=== PATIENT | female | born 2000 | race American Indian/Alaskan Native ===

== ENCOUNTER 2021-01-16 20:25 | Inpatient (IN) | payer MEDICAID ==
[2021-01-16] MEDS ORDERED: LIDOCAINE (2%) 20 MG/1 ML VIAL 20 ML MDV INFILTRATI ONE (22:02)
[2021-01-16] MEDS ORDERED: fentaNYL 100 MCG/2 ML INJ IV PRN (22:02)
[2021-01-16] MEDS ORDERED: MINERAL OIL 30 ML ORAL LIQD PO PRN (22:02)
[2021-01-16] MEDS ORDERED: LOPERAMIDE 2 MG CAP PO PRN (22:02)
[2021-01-16] MEDS ORDERED: DINOPROSTONE 10 MG VAG SUPP VG ONE (22:02)
[2021-01-16] MEDS ORDERED: CARBOPROST TROMETHAMINE 250 MCG/1 ML INJ IM PRN (22:02)
[2021-01-16] MEDS ORDERED: ePHEDrine SULFATE 50 MG/1 ML INJ IV PRN (22:02)
[2021-01-16] MEDS ORDERED: NalbUPHINE 10 MG/1 ML INJ IV PRN (22:02)
[2021-01-16] MEDS ORDERED: miSOPROStol 200 MCG TAB PR PRN (22:02)
[2021-01-16] MEDS ORDERED: OXYTOCIN 10 UNIT/1 ML INJ IM PRN (22:02)
[2021-01-16] MEDS ORDERED: ACETAMINOPHEN 325 MG TAB PO PRN (22:02)
[2021-01-16] MEDS ORDERED: ONDANSETRON 4 MG/2 ML INJ IV PRN (22:02)
[2021-01-16] MEDS ORDERED: METHYLERGONOVINE MALEATE 0.2 MG/ML VIAL IM PRN (22:02)
[2021-01-16] MEDS ORDERED: TERBUTALINE 1 MG/1 ML INJ SUB-Q PRN (22:02)
[2021-01-16] MEDS ORDERED: AMPICILLIN/NS 2 GM/100 ML 2 GM/100 ML BAG IV ONE (22:02)
--- NOTE | 2021-01-16 22:02 | History and Physical Report ---
History of Present Illness Date of examination: 01/16/21 Date of admission: 01/16/21 20:25 Chief complaint: Here for scheduled induction of labor. History of present illness: 20 year old presents for scheduled induction of labor due to post-term . Patient received care at [facility] office and records are available. LMP 03/27/2020. EDC 01/09/2021. significant for the following: obesity, chlamydia (treated and cured), GBS positive (GBS bacteriuria), varicella nonimmune, UTI (treated). labs are as follows: O+, antibody screen negative, rubella immune, hepatitis B surface antigen negative, HIV negative, RPR nonreactive, varicella nonimmune, hemoglobin electrophoresis negative, gonorrhea negative, chlamydia positive/negative, trichomonas negative, NIPS negative, 1 hour sugar test 79, GBS positive. Past History Past Medical History: other (obesity, vitamin D deficiency) Past Surgical History: no surgical history [employer] History: chlamydia (treated and cured during ). denies: gonorrhea, hepatitis B, hepatitis C, herpes, HIV, syphilis, trichomonas Family/Genetic History: other (anemia) Social history: single, full code. denies: smoking, alcohol abuse, prescription drug abuse, IV drug use - Obstetrical History Expected Date of Delivery: 01/09/21 Actual Gestation: 41 Week(s) 0 Day(s) : 1 Para: 0 Hx # Term Pregnancies: 0 Number of Pregnancies: 0 Spontaneous Abortions: 0 Induced : 0 Number of Living Children: 0 Medications and Allergies Allergies Allergy/AdvReac Type Severity Reaction Status Date / Time No Known Allergies Allergy Verified 01/16/21 22:31 Review of Systems All systems: negative (rare contraction) - Vital Signs Vital signs: Vital Signs Pulse Pulse Ox 62 48 L 01/16/21 20:54 01/16/21 20:54 Temp Pulse Resp BP Pulse Ox 77 110/69 99 01/16/21 22:00 01/16/21 20:56 01/16/21 22:00 - Physical Exam Abdomen: Positive: normal appearance, soft. Negative: distention, tenderness, guarding, rigidity Genitourinary (Female): Positive: normal external genitalia, normal perenium. Negative: perineal/vulvar lesions Vagina: Positive: normal moisture Uterus: Positive: enlarged. Negative: tender Anus/Rectum: Positive: normal perianal skin Extremities: Negative: tenderness - Obstetrical FHR: category 2 Uterine Contraction Monitor Mode: External Cervical Dilatation: 1.5 Cervical Effacement Percentage: 50 station: -3 Uterine Contraction Pattern: Absent Results All other labs normal. Assessment and Plan A: at 41 weeks gestation. GBS positive. P: Admit. EFM. GBS prophylaxis. Cervidil for cervical ripening.
[2021-01-16] MEDS: LACTATED RINGERS 1,000 ML IV SCH (22:49)
[2021-01-16] MEDS ORDERED: OXYTOCIN DRIP 30 UNITS/500 ML BAG IV SCH ×2 (23:00)
[2021-01-16 23:02] LABS: Hemoglobin 12.3 gm/dl (10.1-14.3); Mean Corpuscular HGB Conc 33 % (30-34); Mean Corpuscular Volume 89 fl (79-97); Red Blood Count 4.17 M/mm3 (3.65-5.03); Red Cell Distribution Width 14.4 % (13.2-15.2)
[2021-01-16 23:14] LABS: Platelet Count 266 K/mm3 (140-440)
[2021-01-17] MEDS: AMPICILLIN/NS 1 GM/50 ML 1 GM/50 ML BAG IV SCH ×3 (03:15→13:58)
[2021-01-17] MEDS: LACTATED RINGERS 1,000 ML IV SCH (09:02)
--- NOTE | 2021-01-17 10:26 | Progress Note ---
Assessment and Plan A: IUP @ 41 1/7 Weeks Category I Tracing GBS Positive P: AROM Internals x 2 Restart Low Dose Pitocin Induction Subjective - Subjective Date of service: 01/17/21 Patient reports: movement normal Objective - Vital Signs Vital Signs: Vital Signs - 12hr 01/16/21 01/16/21 01/16/21 22:27 22:32 22:37 Temperature Pulse Rate 69 64 66 Blood Pressure O2 Sat by Pulse 100 100 100 Oximetry O2 Sat by Pulse Oximetry [ Bilateral Throughout] 01/16/21 01/16/21 01/16/21 22:42 22:47 22:52 Temperature Pulse Rate 68 70 68 Blood Pressure O2 Sat by Pulse 100 100 100 Oximetry O2 Sat by Pulse Oximetry [ Bilateral Throughout] 01/16/21 01/16/21 01/16/21 22:57 23:02 23:07 Temperature Pulse Rate 67 62 70 Blood Pressure O2 Sat by Pulse 100 100 100 Oximetry O2 Sat by Pulse Oximetry [ Bilateral Throughout] 01/16/21 01/16/21 01/16/21 23:12 23:17 23:22 Temperature Pulse Rate 65 67 71 Blood Pressure O2 Sat by Pulse 99 100 100 Oximetry O2 Sat by Pulse Oximetry [ Bilateral Throughout] 01/16/21 01/16/21 01/16/21 23:27 23:32 23:37 Temperature Pulse Rate 63 64 79 Blood Pressure O2 Sat by Pulse 100 99 100 Oximetry O2 Sat by Pulse Oximetry [ Bilateral Throughout] 01/16/21 01/16/21 01/16/21 23:42 23:47 23:52 Temperature Pulse Rate 68 63 64 Blood Pressure O2 Sat by Pulse 100 100 100 Oximetry O2 Sat by Pulse Oximetry [ Bilateral Throughout] 01/16/21 01/17/21 01/17/21 23:57 00:02 00:07 Temperature Pulse Rate 59 L 65 74 Blood Pressure O2 Sat by Pulse 100 100 100 Oximetry O2 Sat by Pulse Oximetry [ Bilateral Throughout] 01/17/21 01/17/21 01/17/21 00:12 00:17 00:22 Temperature Pulse Rate 71 72 77 Blood Pressure O2 Sat by Pulse 100 100 100 Oximetry O2 Sat by Pulse Oximetry [ Bilateral Throughout] 01/17/21 01/17/21 01/17/21 00:27 00:32 00:37 Temperature Pulse Rate 76 85 69 Blood Pressure O2 Sat by Pulse 99 99 100 Oximetry O2 Sat by Pulse Oximetry [ Bilateral Throughout] 01/17/21 01/17/21 01/17/21 00:42 00:47 00:52 Temperature Pulse Rate 81 77 76 Blood Pressure O2 Sat by Pulse 98 99 100 Oximetry O2 Sat by Pulse Oximetry [ Bilateral Throughout] 01/17/21 01/17/21 01/17/21 00:57 01:02 01:07 Temperature 98.3 F Pulse Rate 72 86 87 Blood Pressure 129/69 O2 Sat by Pulse 100 99 100 Oximetry O2 Sat by Pulse Oximetry [ Bilateral Throughout] 01/17/21 01/17/21 01/17/21 01:12 01:17 01:22 Temperature Pulse Rate 86 89 92 H Blood Pressure O2 Sat by Pulse 100 99 99 Oximetry O2 Sat by Pulse Oximetry [ Bilateral Throughout] 01/17/21 01/17/21 01/17/21 01:27 01:32 01:37 Temperature Pulse Rate 81 73 89 Blood Pressure O2 Sat by Pulse 98 98 99 Oximetry O2 Sat by Pulse Oximetry [ Bilateral Throughout] 01/17/21 01/17/21 01/17/21 01:42 01:47 01:52 Temperature Pulse Rate 91 H 72 70 Blood Pressure O2 Sat by Pulse 99 99 99 Oximetry O2 Sat by Pulse Oximetry [ Bilateral Throughout] 01/17/21 01/17/21 01/17/21 01:57 02:02 02:07 Temperature Pulse Rate 84 83 85 Blood Pressure 111/59 O2 Sat by Pulse 99 98 99 Oximetry O2 Sat by Pulse Oximetry [ Bilateral Throughout] 01/17/21 01/17/21 01/17/21 02:12 02:17 02:22 Temperature Pulse Rate 83 90 68 Blood Pressure O2 Sat by Pulse 99 99 99 Oximetry O2 Sat by Pulse Oximetry [ Bilateral Throughout] 01/17/21 01/17/21 01/17/21 02:27 02:32 02:37 Temperature Pulse Rate 75 85 68 Blood Pressure O2 Sat by Pulse 99 99 99 Oximetry O2 Sat by Pulse Oximetry [ Bilateral Throughout] 01/17/21 01/17/21 01/17/21 02:42 02:47 02:52 Temperature Pulse Rate 73 67 68 Blood Pressure O2 Sat by Pulse 99 99 98 Oximetry O2 Sat by Pulse Oximetry [ Bilateral Throughout] 01/17/21 01/17/21 01/17/21 02:57 03:02 03:07 Temperature Pulse Rate 64 78 77 Blood Pressure O2 Sat by Pulse 98 99 96 Oximetry O2 Sat by Pulse Oximetry [ Bilateral Throughout] 01/17/21 01/17/21 01/17/21 03:08 03:12 03:17 Temperature Pulse Rate 76 69 62 Blood Pressure 140/66 O2 Sat by Pulse 98 100 Oximetry O2 Sat by Pulse Oximetry [ Bilateral Throughout] 01/17/21 01/17/21 01/17/21 03:22 03:27 03:32 Temperature Pulse Rate 68 73 66 Blood Pressure O2 Sat by Pulse 98 100 99 Oximetry O2 Sat by Pulse Oximetry [ Bilateral Throughout] 01/17/21 01/17/21 01/17/21 04:09 05:08 06:18 Temperature Pulse Rate 68 60 72 Blood Pressure 104/52 120/65 105/58 O2 Sat by Pulse Oximetry O2 Sat by Pulse Oximetry [ Bilateral Throughout] 01/17/21 01/17/21 01/17/21 07:08 07:30 08:06 Temperature Pulse Rate 58 L 70 Blood Pressure 90/53 111/61 O2 Sat by Pulse Oximetry O2 Sat by Pulse 99 Oximetry [ Bilateral Throughout] 01/17/21 01/17/21 09:08 10:07 Temperature Pulse Rate 62 68 Blood Pressure 107/62 127/68 O2 Sat by Pulse Oximetry O2 Sat by Pulse Oximetry [ Bilateral Throughout] - Exam Breasts: normal Cardiovascular: Regular rate Lungs: Clear to auscultation, Normal air movement Abdomen: Present: normal appearance, soft Uterus: Present: normal, firm, fundal height above umbilicus FHR: category 1 Uterine Contraction Monitor Mode: Internal Cervical Dilatation: 3 (Moderate amount of clear fluid upon AROM at 1000) Cervical Effacement Percentage: 60 station: -2 Uterine Contraction Frequency (min): 5 Uterine Contraction Pattern: Irregular Uterine Tone Measurement Phase: Resting Uterine Contraction Intensity: Mild Extremities: normal - Labs Labs: Laboratory Results - last 24 hr 01/16/21 01/16/21 01/16/21 21:17 21:17 23:45 WBC 8.6 RBC 4.17 Hgb 12.3 Hct 37.0 MCV 89 MCH 30 MCHC 33 RDW 14.4 Plt Count 266 Syphilis IgG Antibody Nonreactive Blood Type O POSITIVE Antibody Screen Negative
[2021-01-17] MEDS ORDERED: METOCLOPRAMIDE 10 MG/2 ML INJ IV ONE (13:28)
[2021-01-17] MEDS ORDERED: FAMOTIDINE 20 MG/2 ML INJ IV ONE (13:28)
[2021-01-17] MEDS ORDERED: BICITRA ORAL LIQD 30ML PO ONE (13:28)
[2021-01-17] MEDS ORDERED: LACTATED RINGERS 1,000 ML IV SCH (13:30)
[2021-01-17] MEDS ORDERED: OXYTOCIN DRIP 30 UNITS/500 ML BAG IV SCH ×2 (14:00→20:00)
[2021-01-17] MEDS ORDERED: ceFAZolin/Water 2 GM/20 ML 2 GM/20 ML SYRINGE IV NR (14:00)
[2021-01-17] MEDS ORDERED: BUPIVACAINE/PF (0.5%) 5 MG/1 ML 30 ML VIAL INFILTRATI ONE (16:23)
[2021-01-17] MEDS ORDERED: KETOROLAC 30 MG/1 ML INJ ONE (16:23)
[2021-01-17] MEDS ORDERED: dexAMETHasone 20 MG/5 ML VIAL ONE (16:23)
[2021-01-17] MEDS ORDERED: ONDANSETRON 4 MG/2 ML INJ ONE (16:23)
--- NOTE | 2021-01-17 16:40 | Anesthesia Day of Surgery ---
Anesthesia Day of Surgery - Day of Surgery Patient Examined: Yes Patient H&P Reviewed: Yes Patient is NPO: Yes Beta Blockers: No Cardiac Clearance: No Pulmonary Clearance: No Sven's Test: N/A
[2021-01-17] MEDS ORDERED: HYDROmorphone 1 MG/1 ML INJ IV PRN (16:41)
[2021-01-17] MEDS ORDERED: diphenhydrAMINE 50 MG/ML VIAL IV PRN (16:41)
[2021-01-17] MEDS ORDERED: NALOXONE 0.4 MG/1 ML INJ IV PRN ×2 (16:41→19:27)
[2021-01-17] MEDS ORDERED: PROMETHAZINE 25 MG RECT SUPP PR PRN ×2 (16:41→19:27)
[2021-01-17] MEDS ORDERED: NalbUPHINE 10 MG/1 ML INJ IV PRN (16:41)
[2021-01-17] MEDS ORDERED: ONDANSETRON 4 MG/2 ML INJ IV PRN ×2 (16:41→19:27)
[2021-01-17] MEDS ORDERED: PROMETHAZINE 25 MG TAB PO PRN (16:41)
--- NOTE | 2021-01-17 16:41 | Anesthesia Consultation ---
Anesthesia Consult and Med Hx Date of service: 01/17/21 - Airway Anesthetic Teeth Evaluation: Good ROM Head & Neck: Adequate Mental/Hyoid Distance: Adequate Mallampati Class: Class II Intubation Access Assessment: Probably Good - Pulmonary Exam CTA: Yes - Cardiac Exam Cardiac Exam: RRR - Pre-Operative Health Status ASA Pre-Surgery Classification: ASA2 Proposed Anesthetic Plan: Spinal Nerve Block: TAP - Pulmonary Hx Smoking: No Hx Asthma: No Hx Sleep Apnea: No - Cardiovascular System Hx Hypertension: No Hx Heart Attack/AMI: No Hx Angina: No - Central Nervous System Hx Seizures: No Hx Psychiatric Problems: No - Gastrointestinal Hx Gastroesophageal Reflux Disease: No - Endocrine Hx Renal Disease: No Hx Liver Disease: No Hx Insulin Dependent Diabetes: No Hx Non-Insulin Dependent Diabetes: No Hx Hypothyroidism: No Hx Hyperthyroidism: No - Hematic Hx Anemia: No Hx Sickle Cell Disease: No - Other Systems Hx Obesity: Yes
[2021-01-17] MEDS ORDERED: ceFAZolin/STERILE WATER 2 GM/20 ML SYRINGE IV ONE (17:35)
[2021-01-17] MEDS ORDERED: WATER FOR IRRIG STERILE 1,500 ML BOTTLE IR ONE (17:43)
[2021-01-17] MEDS ORDERED: SODIUM CHLORIDE 0.9% IRR 1,500 ML BOTTLE IR ONE (17:43)
[2021-01-17] MEDS ORDERED: PHENYLEPHRINE/NS 1,000 MCG/10 ML SYRINGE (OR USE) IV ONE (17:52)
[2021-01-17] MEDS ORDERED: ePHEDrine SULFATE 50 MG/1 ML INJ ONE (17:52)
[2021-01-17] MEDS ORDERED: fentaNYL 100 MCG/2 ML INJ ONE (18:37)
[2021-01-17] MEDS ORDERED: KETAMINE/STERILE WATER 50 MG/ML SYRINGE ONE (18:53)
[2021-01-17] MEDS ORDERED: SENNOSIDES 8.6 MG TAB PO PRN (19:27)
[2021-01-17] MEDS ORDERED: SIMETHICONE 80 MG CHEW TAB PO PRN (19:27)
[2021-01-17] MEDS ORDERED: MORPHINE 4 MG/1 ML INJ IV PRN (19:27)
[2021-01-17] MEDS ORDERED: LANOLIN/ZINC/DIMETHICONE (LANSINOH) 7 GM TP PRN (19:27)
[2021-01-17] MEDS ORDERED: ACETAMINOPHEN 325 MG TAB PO PRN (19:27)
[2021-01-17] MEDS ORDERED: IBUPROFEN 800 MG TAB PO PRN (19:27)
[2021-01-17] MEDS ORDERED: WITCH HAZEL/ GLYCERIN PAD TP PRN (19:27)
[2021-01-17] MEDS ORDERED: HYDROCORTISONE 25 MG RECTAL SUPP PR PRN (19:27)
[2021-01-17] MEDS ORDERED: MAGNESIUM HYDROXIDE (MOM) ORAL LIQD UDC PO PRN (19:27)
--- NOTE | 2021-01-17 19:44 | Procedure Note ---
OB Delivery Note - Delivery Date of Delivery: 01/17/21 Surgeon: YURI SOLORIO JR Estimated blood loss: other (QBL 590cc) - Section Preop diagnosis: arrest of dilation, nonreassuring FHR tracing Postop diagnosis: same section procedure: section, primary low transverse Disposition: PACU Complications: hematoma (non-expanding 3 cm right sided hematoma) Narrative: Indication: 20-year-old G1 at 41 weeks 1 day complicated by obesity presenting for induction of labor now failed secondary to inability to induce and nonreassuring heart tones for primary . Findings: Normal uterus, tubes and ovaries. Clear fluid, terminal meconium. No nuchal cord. Delivery of male infant at 1834 Weight 2975g APGARS 9/9 EBL 590cc QBL [id number] cc UOP 150 cc Procedure: Patient was taken to the operating room prepped and draped in the usual sterile fashion. Pfannenstiel skin incision was made and carried down to the underlying fascia. Fascia was incised and the incision was distended bilaterally. Rectus fascia was dissected off the rectus muscle superiorly and inferiorly. Peritoneum was identified and entered. Peritoneal incision extended superiorly and inferiorly. The bladder was visualized. The bladder blade was placed. Uterine hysterotomy incision was made and extended bilaterally. The baby was delivered in the typical vertex fashion. Baby was bulb suction at delivery. The cord was cut and clamped and handed off to the team. The placenta was delivered spontaneously. The uterus was exteriorized and cleared of all clots and debris. Uterine incision was closed with a 0 Vicryl in a running locked fashion. Good hemostasis was noted at the second and second [id number] suture applied to a right sided incisional hematoma. Surgicel powder was applied to the uterine incisional base to provide hemostasis. The urine was noted to be clear. Uterus, tubes, and ovaries were returned to the abdominal cavity. Bilateral gutters were cleared and the abdomen and pelvis were irrigated. Good hemostasis noted. The rectus muscle was reapproximated with 2-0 Vicryl. Attention was directed towards the rectus fascia which was reapproximated with 0 PDS in a running fashion. The subcutaneous tissue was irrigated and reapproximated with 2-0 Vicryl in a running fashion. Skin was closed with a 3-0 monocryl in a subcuticular fashion. The procedure was completed and the patient tolerated the procedure well. All instruments and lap counts were correct x2. - Infant A at 1 minute: 9 at 5 minutes: 9 Gender: Male
[2021-01-17] MEDS: KETOROLAC 30 MG/1 ML INJ IV SCH (22:31)
[2021-01-17] MEDS: D5W/LACTATED RINGERS 1,000 ML IV SCH (22:33)
[2021-01-18] MEDS: KETOROLAC 30 MG/1 ML INJ IV SCH ×3 (03:38→14:43)
[2021-01-18] MEDS: D5W/LACTATED RINGERS 1,000 ML IV SCH (03:40)
[2021-01-18] MEDS: oxyCODONE /ACETAMINOPHEN 5-325MG TAB PO PRN ×2 (05:55→22:01)
[2021-01-18 11:07] LABS: Hematocrit 26.3 % (30.3-42.9); Hemoglobin 8.8 gm/dl (10.1-14.3)
--- NOTE | 2021-01-18 12:26 | Post Anesthesia Evaluation ---
- Post Anesthesia Evaluation Patient Participated: Yes Airway Patent: Yes Stable Respiratory Function: Yes Nausea/Vomiting: No Temp > 96.8F: Yes Pain Manageable: Yes Adequeate Hydration: Yes Anesthesia Complications: No Block Receding Appropriately: Yes Patient on Ventilator: No
--- NOTE | 2021-01-18 16:15 | Progress Note ---
Assessment and Plan POD#1, C/Section doing fair 1. Routine post op care and dressing removal tomorrow 2. Iron supplement for asymptomatic anemia, hgb 8.8 seen plan of care discussed with pt Subjective Date of service: 01/18/21 Principal diagnosis: POD#1 C/S Interval history: pt has no complaints. pain controlled with meds. pt is breast feedling. vag bleed less than a period. pt has passed flatus. Tolerates clears diet and voiding without difficulty Objective - Constitutional Vitals: Vital Signs - 12hr 01/18/21 01/18/21 01/18/21 05:00 05:55 08:30 Temperature 98.6 F Pulse Rate 66 Respiratory 18 20 Rate Blood Pressure Blood Pressure 118/63 [Left] O2 Sat by Pulse 100 Oximetry O2 Sat by Pulse 98 Oximetry [ Bilateral Throughout] 01/18/21 01/18/21 08:52 12:51 Temperature 97.9 F 98.0 F Pulse Rate 69 61 Respiratory 18 19 Rate Blood Pressure 124/62 118/57 Blood Pressure [Left] O2 Sat by Pulse 97 100 Oximetry O2 Sat by Pulse Oximetry [ Bilateral Throughout] General appearance: Present: no acute distress - Respiratory Respiratory effort: normal Extremities: No edema - Genitourinary Female genitourinary: other (fundus, firm below umbilicus) - Labs CBC & Chem 7: 01/18/21 10:47 Labs: Abnormal lab results 01/18/21 Range/Units 10:47 Hgb 8.8 L D (10.1-14.3) gm/dl Hct 26.3 L D (30.3-42.9) % Medications & Allergies - Medications Allergies/Adverse Reactions: Allergies No Known Allergies Allergy (Verified 01/16/21 22:31) Home Medications: Home Medications Medication Instructions Recorded Confirmed Last Taken Type Ibuprofen [Motrin 800 MG tab] 800 mg PO Q6H PRN #30 tablet 01/17/21 Unknown Rx oxyCODONE /ACETAMINOPHEN [Percocet 1 tab PO Q6H PRN #30 tablet 01/17/21 Unknown Rx 5/325 mg] Active Medications: Generic Name Dose Route Start Last Admin Trade Name Freq PRN Reason Stop Dose Admin Acetaminophen 650 mg 01/17/21 19:27 Acetaminophen 325 Mg Tab PO Q4H PRN Fever >100.5/SMITH Carboprost Tromethamine 250 mcg 01/16/21 22:02 Carboprost Tromethamine 250 Mcg/1 Ml Inj IM ONCE PRN Uterine Bleeding Diphenhydramine HCl 12.5 mg 01/17/21 16:41 Diphenhydramine 50 Mg/Ml Vial IV Q2H PRN Itching Ephedrine Sulfate 10 mg 01/16/21 22:02 Ephedrine Sulfate 50 Mg/1 Ml Inj IV Q2M PRN Hypotension Fentanyl 100 mcg 01/16/21 22:02 Fentanyl 100 Mcg/2 Ml Inj IV Q2H PRN Pain,Severe (7-10) LABOR PAIN Hydrocortisone Acetate 25 mg 01/17/21 19:27 Hydrocortisone 25 Mg Rectal Supp RI BID PRN Hemorrhoids Hydromorphone HCl 0.5 mg 01/17/21 16:41 01/18/21 09:52 Hydromorphone 1 Mg/1 Ml Inj IV 0.5 mg Q4H PRN Administration breakthrough pain > 7/10 Oxytocin/Sodium Chloride 30 units in 500 mls @ 40 mls/hr 01/17/21 20:00 Pitocin/Ns 30 Unit/500ml IV TITR BROOKE Protocol Dextrose/Lactated Ringer's 1,000 mls @ 125 mls/hr 01/17/21 23:00 01/18/21 03:40 D5lr IV 125 mls/hr DIRECT BROOKE Administration Ibuprofen 800 mg 01/17/21 19:27 Ibuprofen 800 Mg Tab PO Q6H PRN Pain, Mild (1-3) Loperamide HCl 2 mg 01/16/21 22:02 Loperamide 2 Mg Cap PO ONCE PRN give with Hemabate Magnesium Hydroxide 30 ml 01/17/21 19:27 Magnesium Hydroxide (Mom) Oral Liqd Udc PO QHS PRN Constip Unrelieved By Senna Methylergonovine Maleate 0.2 mg 01/16/21 22:02 Methylergonovine Maleate 0.2 Mg/Ml Vial IM ONCE PRN Uterine Bleeding Mineral Oil 30 ml 01/16/21 22:02 Mineral Oil 30 Ml Oral Liqd PO QHS PRN Constipation Misoprostol 800 mcg 01/16/21 22:02 Misoprostol 200 Mcg Tab RI ONCE PRN Uterine Bleeding Morphine Sulfate 4 mg 01/17/21 19:27 Morphine 4 Mg/1 Ml Inj IV Q4H PRN Pain , Severe (7-10) Multi-Ingredient Ointment 1 applic 01/17/21 19:27 Lanolin/Zinc/Dimethicone (Lansinoh) 7 Gm TP PRN PRN dryness/cracking Nalbuphine HCl 10 mg 01/16/21 22:02 Nalbuphine 10 Mg/1 Ml Inj IV Q2H PRN Pain, Moderate (4-6) Nalbuphine HCl 2.5 mg 01/17/21 16:41 Nalbuphine 10 Mg/1 Ml Inj IV Q2H PRN Itching Naloxone HCl 0.1 mg 01/17/21 19:27 Naloxone 0.4 Mg/1 Ml Inj IV Q2MIN PRN Res Rate </= 8 or 02 SAT < 92% Ondansetron HCl 4 mg 01/17/21 19:27 Ondansetron 4 Mg/2 Ml Inj IV Q8H PRN Nausea And Vomiting Oxycodone/Acetaminophen 1 tab 01/17/21 19:27 01/18/21 05:55 Oxycodone /Acetaminophen 5-325mg Tab PO 1 tab Q6H PRN Administration Pain, Moderate (4-6) Oxytocin 10 unit 01/16/21 22:02 Oxytocin 10 Unit/1 Ml Inj IM ONCE PRN Uterine Bleeding Promethazine HCl 25 mg 01/17/21 16:41 Promethazine 25 Mg Tab PO Q6H PRN Nausea And Vomiting Promethazine HCl 25 mg 01/17/21 19:27 Promethazine 25 Mg Rect Supp RI Q6H PRN N/V IF NPO AND NO IV ACCESS Senna 17.2 mg 01/17/21 19:27 Sennosides 8.6 Mg Tab PO QHS PRN Constipation Simethicone 80 mg 01/17/21 19:27 Simethicone 80 Mg Chew Tab PO Q6H PRN Gas pain Sodium Chloride 10 ml 01/17/21 20:00 Sodium Chloride 0.9% 10 Ml Flush Syringe IV PRN PRN LINE FLUSH Terbutaline Sulfate 0.25 mg 01/16/21 22:02 Terbutaline 1 Mg/1 Ml Inj SUB-Q ONCE PRN Hyperstimulation/Hypertonicity Witch Lupe/Glycerin 1 each 01/17/21 19:27 Witch Lupe/ Glycerin Pad TP PRN PRN Hemorrhoids/cleansing/soothing
[2021-01-18] MEDS: ASCORBIC ACID 500 MG TAB PO SCH ×2 (17:53→22:01)
[2021-01-18] MEDS: FERROUS SULFATE 325 MG TAB PO SCH ×2 (17:53→22:01)
[2021-01-19] MEDS: oxyCODONE /ACETAMINOPHEN 5-325MG TAB PO PRN (05:22)
[2021-01-19] MEDS: FERROUS SULFATE 325 MG TAB PO SCH (09:28)
--- NOTE | 2021-01-19 11:22 | Progress Note ---
Assessment and Plan A: POD #2 Asymptomatic Anemia P: Follow Routine Postop Orders Infed 100mg IM x 1 dose D/C home per Patient Request RTO in One Week Subjective - Subjective Date of service: 01/19/21 Principal diagnosis: POD#1 C/S Patient reports: appetite normal, voiding normally, pain well controlled, ambulating normally [place]: doing well, bottle feeding (and ) Objective - Vital Signs Latest vital signs: Vital Signs Temp Pulse Resp BP Pulse Ox Pulse Ox 01/19/21 09:00 100 01/19/21 08:06 98.2 F 68 18 119/70 99 01/19/21 06:22 18 01/19/21 05:22 18 01/19/21 00:41 98.2 F 79 20 110/53 99 01/18/21 23:01 18 01/18/21 22:01 18 01/18/21 20:00 100 01/18/21 15:47 98.2 F 69 18 107/55 98 01/18/21 12:51 98.0 F 61 19 118/57 100 Intake and Output 01/18/21 01/19/21 01/19/21 22:59 06:59 14:59 Intake Total 480 360 Balance 480 360 Intake: Oral 480 360 Other: Total, Intake Amount 240 240 Total, Output Amount 120 # Voids Void 1 1 - Exam Breasts: Present: normal Cardiovascular: Present: Regular rate Lungs: Present: Clear to auscultation, Normal air movement Abdomen: Present: normal appearance, soft, normal bowel sounds Uterus: Present: normal, firm, fundal height below umbilicus Extremities: Present: normal Incision: Present: normal, dry, intact
--- NOTE | 2021-01-19 11:24 | Discharge Summary ---
Providers - Providers Date of Admission: 01/16/21 20:25 Date of discharge: 01/19/21 Attending physician: JUDIE RODAS Primary care physician: JUDIE RODAS Hospitalization Reason for admission: induction of labor Delivery: Procedure: primary low transverse Episiotomy: none Laceration: none Incision: normal, dry, intact Other procedures: none complications: none Discharge diagnosis: IUP at term delivered [place] baby: male Condition at discharge: Good Disposition: 01 HOME / SELF CARE / HOMELESS Plan - Discharge Medications Prescriptions: Ibuprofen [Motrin 800 MG tab] 800 mg PO Q6H PRN #30 tablet PRN Reason: Pain, Mild (1-3) oxyCODONE /ACETAMINOPHEN [Percocet 5/325 mg] 1 tab PO Q6H PRN #30 tablet PRN Reason: Pain, Moderate (4-6) - Provider Discharge Summary Activity: routine, no sex for 6 weeks, no heavy lifting 4 weeks, no strenuous exercise Diet: routine Instructions: routine Additional instructions: [] Smoking cessation referral if applicable(refer to patient education folder for contact #) [] Refer to [facility] Booklet Call your doctor immediately for: * Fever > 100.5 * Heavy vaginal bleeding ( >1 pad per hour) * Severe persistent headache * Shortness of breath * Reddened, hot, painful area to leg or breast * Drainage or odor from incision. * Keep incision clean and dry at all times and follow doctor's instructions regarding bathing/showering - Follow up plan Follow up: YURI SOLORIO JR, MD [Staff Physician] - 7 Days
[2021-01-19] MEDS ORDERED: IRON DEXTRAN COMPLEX 100 MG/2 ML INJ IM NR (12:00)
[2021-01-19] MEDS: ASCORBIC ACID 500 MG TAB PO SCH (13:00)
[2021-01-19 13:19] VITALS: BP 114/58
== END 2021-01-19 14:20 | disposition home or self-care (01) | DRG 765 ==
LOC: LD 20:25 → OB 01-17 20:59 → APU 01-17 21:01 → OB 01-17 21:10
PROVIDERS: ADMIT Obstetrics & Gynecology; ATTEND Obstetrics & Gynecology
PROC: 10D00Z1 Extraction of Products of Conception, Low, Open Approach (ICD-10-PCS; principal; 2021-01-17)
PROC: 10907ZC Drainage of Amniotic Fluid, Therapeutic from Products of Conception, Via Natural or Artificial Opening (ICD-10-PCS; 2021-01-17)
PROC: 3E033VJ Introduction of Other Hormone into Peripheral Vein, Percutaneous Approach (ICD-10-PCS; 2021-01-17)
DX: O48.0 Post-term pregnancy (principal); D62 Acute posthemorrhagic anemia; O99.824 Streptococcus B carrier state complicating childbirth; O61.9 Failed induction of labor, unspecified; Z3A.41 41 weeks gestation of pregnancy; Z37.0 Single live birth; Z20.822 Contact with and (suspected) exposure to COVID-19; O76 Abnormality in fetal heart rate and rhythm complicating labor and delivery; O90.81 Anemia of the puerperium
CPT/HCPCS: 36415; 85014; 85018; 85027; 86592; 86850; 86900; 86901; 88307; 99211; G0378; G0463; J0290; J0690; J1100; J1170; J1885; J2370; J2405; J2590; J2765; J3010; J3490; J7120; J7121; U0003